=== PATIENT | female | born 1980 | race Caucasian/White ===

== ENCOUNTER 2019-09-08 19:58 | Emergency (ER) | payer BC ==
[~2019-09-08] VITALS: Ht 165.1 cm; Wt 63.5 kg
[~2019-09-08 19:58] MED LIST: OMEP20ER PO
== END 2019-09-08 20:54 | disposition home or self-care (01) ==
LOC: ER 19:58
DX: S61.012A Laceration without foreign body of left thumb without damage to nail, initial encounter (principal); W26.8XXA Contact with other sharp object(s), not elsewhere classified, initial encounter; Z88.5 Allergy status to narcotic agent; Z88.2 Allergy status to sulfonamides; Z88.8 Allergy status to other drugs, medicaments and biological substances
CPT/HCPCS: 12001; 99282-25

== ENCOUNTER → 2021-03-14 | Outpatient (CLI) | payer BC | LOC: LAB 14:17 → LAB SHORT 14:17 | DX: D48.5 Neoplasm of uncertain behavior of skin (principal) | CPT/HCPCS: 88305 ==

== ENCOUNTER → 2021-04-03 | Outpatient (CLI) | payer BC | END | disposition home or self-care (01) | LOC: LAB SHORT 11:45 → LAB 11:45 | DX: D22.5 Melanocytic nevi of trunk (principal) | CPT/HCPCS: 88305 ==